=== PATIENT | male | born 1990 | race Caucasian/White ===

== ENCOUNTER 2020-09-16 07:08 | Outpatient (REF) | payer BC, SELFPAY | END 2020-09-16 07:09 | disposition home or self-care (01) | LOC: HO.LAB 07:08 | PROVIDERS: Visit Provider Internal Medicine | DX: Z20.828 Contact with and (suspected) exposure to other viral communicable diseases (principal) | CPT/HCPCS: C9803; U0003 ==

== ENCOUNTER 2024-09-28 09:09 | Emergency (ER) | payer BC, SELFPAY ==
--- NOTE | ~2024-09-28 | XR_ITS ---
EXAMINATION: XR CHEST CLINICAL INFORMATION: chest pain COMPARISON: None available. TECHNIQUE: 2 views of the chest were obtained. FINDINGS: The cardiac, hilar, and mediastinal contours are normal. The lungs are clear bilaterally. There is no pneumothorax or pleural effusion. There is no focal osseous or soft tissue abnormality. XR/XR chest 2V IMPRESSION: Normal chest. Electronically signed by: Urban Brandon MD 09/28/2024 10:43 AM [facility]
--- NOTE | 2024-09-28 09:14 | ECG_ITS ---
Test Reason : CHEST PAIN Blood Pressure : */* mmHG Vent. Rate : 56 BPM Atrial Rate : 56 BPM P-R Int : 114 ms QRS Dur : 96 ms QT Int : 402 ms P-R-T Axes : 27 61 20 degrees QTcB Int : 387 ms Sinus bradycardia Otherwise normal ECG No previous ECGs available Referred By: Generic ED Physician Electronically Signed By: eMd Song
[2024-09-28 09:47] VITALS: BP 122/83; PULSE 65; RESP 20; TEMP 36.3; O2SAT 99; BMI 23.6
[2024-09-28 10:46] LABS: MANUAL DIFF FLAG NO
[2024-09-28 10:49] LABS: Basophils Absolute Auto 0.1 X10*3/uL (0.0-0.2); Basophils Percent Auto 0.8 % (0-2); Eosinophils Absolute Auto 0.1 X10*3/uL (0.0-0.4); Eosinophils Percent Auto 1.2 % (0-4); Hematocrit 44.6 % (42.0-52.0); Hemoglobin 15.8 g/dl (14.0-18.0); Imm Gran Abs Auto 0.03 X10*3/uL (0.00-0.03); Imm Gran Pct Auto 0.5 % (0.0-0.4); Lymphocytes Absolute Auto 1.6 X10*3/uL (1.2-4.9); Lymphocytes Percent Auto 23.7 % (20-40); Mean Corpuscular HGB Conc 35.4 g/dl (31.0-36.0); Mean Corpuscular Hemoglobin 30.3 pg (27.0-33.0); Mean Corpuscular Volume 85.6 fL (80.0-98.0); Monocytes Absolute Auto 0.5 X10*3/uL (0.1-1.2); Monocytes Percent Auto 7.6 % (2-11); Neutrophils Absolute Auto 4.4 x10*3/uL (2.0-8.3); Neutrophils Percent Auto 66.2 % (45-73); Platelet Count 258 X10*3/uL (160-400); Red Blood Count 5.21 X10*6/uL (4.60-5.80); Red Cell Distribution Width 12.7 % (11.0-16.0); White Blood Count 6.6 X10*3/uL (4.8-10.8)
[2024-09-28 11:03] LABS: Alanine Aminotransferase 26 U/L (0-40); Albumin Level 4.7 g/dL (3.5-5.0); Alkaline Phosphatase 48 U/L (39-117); Anion Gap 9 (12-20); Aspartate Amino Transferase 25 U/L (5-37); Blood Urea Nitrogen 12 mg/dL (9-16); Calcium 9.8 mg/dL (8.4-10.2); Carbon Dioxide 27 mmol/L (22-29); Chloride 107 mmol/L (96-108); Creatinine Clr Calc Pharmacy 103.8; Estimated Glomerular Filt Rate > 60; Glucose Random 106 mg/dL (60-115); Potassium 4.1 mmol/L (3.3-5.1); Sodium 139 mmol/L (135-145); Total Protein 7.9 g/dL (6.5-8.0)
[2024-09-28 11:12] LABS: Troponin-I High Sensitivity < 2.7 ng/L (<3.5-35.0)
[2024-09-28 16:28] VITALS: BP 124/70; PULSE 52; RESP 12; TEMP 36.4; O2SAT 100
--- NOTE | 2024-09-28 16:31 | ED_ITS ---
HPI - Chest Pain General Chief Complaint: Chest Pain Stated Complaint: Chest pain Time Seen by Provider: 09/28/24 16:24 Source: patient Mode of arrival: ambulatory Limitations: no limitations History of Present Illness ED Provider: HPI narrative: Patient with history of chronic back pain chronic chest pain off and on for last 2 years seen at [facility] had a stress test last year which was normal multiple evaluation negative comes here as he woke up at 07:00 from dog barking in the house since then been having sharp pain left costochondral area lasted only for 1 hour no chest pain at this no diaphoresis no shortness patient denies any anxiety Related Data Allergies Allergy/AdvReac Type Severity Reaction Status Date / Time No Known Allergies Allergy Verified 09/28/24 09:48 Review of Systems 2 Review of Systems: Yes all other systems are reviewed and are negative Physical Exam 2 Vital Signs: Vital Signs: Last Vital Signs Temp 97.6 F 09/28/24 16:28 Pulse 52 09/28/24 16:28 Resp 12 09/28/24 16:28 BP 124/70 09/28/24 16:28 Pulse Ox 100 09/28/24 16:28 O2 Del Method Room Air 09/28/24 16:28 BMI result Body Mass Index 23.6 Appearance: Alert. Oriented X3. No acute distress. Eyes: PERRLA, No Nystagmus ENT: Pharynx normal. Oral Mucosa moist Neck: Normal inspection. Neck supple. CVS: Normal heart rate and rhythm. Pulses normal. Left costochondral tenderness Respiratory: No respiratory distress. Equal air entry bilateral, no wheezing/rales/rhonchi Abdomen: Soft and nontender. Bowel sounds are present, no mass palpable, no CVA tenderness Skin: Skin warm and dry. Normal skin color. Normal skin turgor. Extremities: No lower extremity edema. No calf tenderness Neuro: Oriented X 3. No motor deficit. Medical Decision Making Medical Decision Making [facility] Narrative: Patient has atypical chest pain likely musculoskeletal with heart score of 0 atypical chest pain cardiac enzymes EKG negative will discharge patient home take NSAIDs for the costochondritis Differential Diagnosis Differential Diagnoses: The differential diagnosis associated with the presentation includes Costochondritis/anxiety/musculoskeletal/ACS Lab Data [facility] Lab Attestation statement: I reviewed the patient's lab results. 09/28/24 10:44 09/28/24 10:44 Labs: Lab Results 09/28/24 Range/Units 10:44 WBC 6.6 (4.8-10.8) X10*3/uL RBC 5.21 (4.60-5.80) X10*6/uL Hgb 15.8 (14.0-18.0) g/dl Hct 44.6 (42.0-52.0) % MCV 85.6 (80.0-98.0) fL MCH 30.3 (27.0-33.0) pg MCHC 35.4 (31.0-36.0) g/dl RDW 12.7 (11.0-16.0) % Plt Count 258 (160-400) X10*3/uL MPV 9.0 L (9.4-12.4) fL Immature Gran % (Auto) 0.5 H (0.0-0.4) % Neut % (Auto) 66.2 (45-73) % Lymph % (Auto) 23.7 (20-40) % Simpson % (Auto) 7.6 (2-11) % Eos % (Auto) 1.2 (0-4) % Baso % (Auto) 0.8 (0-2) % Lymph # (Auto) 1.6 (1.2-4.9) X10*3/uL Simpson # (Auto) 0.5 (0.1-1.2) X10*3/uL Eos # (Auto) 0.1 (0.0-0.4) X10*3/uL Baso # (Auto) 0.1 (0.0-0.2) X10*3/uL Abs Immat Gran (auto) 0.03 (0.00-0.03) X10*3/uL Absolute Neuts (auto) 4.4 (2.0-8.3) x10*3/uL Absolute Nucleated RBC 0.000 (0.0-0.012) X10*3/uL Nucleated RBC % (auto) 0.0 (0.0-0.2) /100WBC Sodium 139 (135-145) mmol/L Potassium 4.1 (3.3-5.1) mmol/L Chloride 107 (96-108) mmol/L Carbon Dioxide 27 (22-29) mmol/L Anion Gap 9 L (12-20) BUN 12 (9-16) mg/dL Creatinine 1.11 (0.5-1.4) mg/dL Estim Creat Clear Calc 103.8 Estimated GFR > 60 Random Glucose 106 (60-115) mg/dL Calcium 9.8 (8.4-10.2) mg/dL Total Bilirubin 1.0 (0.0-1.0) mg/dL AST 25 (5-37) U/L ALT 26 (0-40) U/L Alkaline Phosphatase 48 (39-117) U/L Troponin I High Sens < 2.7 (<3.5-35.0) ng/L Total Protein 7.9 (6.5-8.0) g/dL Albumin 4.7 (3.5-5.0) g/dL Independent Interpretation I performed an independent interpretation of an: EKG Interpretation: Sinus bradycardia heart rate 56 beats per minute normal intervals normal axis no acute STT wave changes no acute ischemia Discharge Plan Discharge Clinical Impression: Costalchondritis Patient Disposition: Home, Self-Care Instructions: Costochondritis (ED) Additional Instructions: Take ibuprofen as advised Your pain is not from the heart, is musculoskeletal Follow up with your PCP Print Language: Armenian
[2024-09-28 16:55] VITALS: BP 124/70; PULSE 52; RESP 12; TEMP 36.4; O2SAT 100
== END 2024-09-28 16:56 | disposition home or self-care (01) ==
PROVIDERS: Emergency Provider Internal Medicine; PCP Internal Medicine
DX: M94.0 Chondrocostal junction syndrome [Tietze] (principal)
CPT/HCPCS: 36415; 71046; 80053; 84484; 85025; 93005; 99283; 99284

== ENCOUNTER → 2024-09-28 09:14 | Outpatient (BNV) | payer BC, SELFPAY | PROVIDERS: Emergency Provider Internal Medicine; PCP Internal Medicine; Visit Provider Internal Medicine Cardiovascular Disease | DX: R07.9 Chest pain, unspecified (principal) | CPT/HCPCS: 93010 ==

== ENCOUNTER → 2024-09-28 10:20 | Outpatient (BNV) | payer BC, SELFPAY | PROVIDERS: PCP Internal Medicine; Visit Provider Radiology Diagnostic Radiology | DX: R07.9 Chest pain, unspecified (principal) | CPT/HCPCS: 71046 ==

== ENCOUNTER 2024-11-02 15:30 | Outpatient (AMB) | payer BC, SELFPAY ==
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
[2024-11-02 15:58] VITALS: BP 132/70; PULSE 76; RESP 16; TEMP 36.7; O2SAT 100; BMI 25.0
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
--- OUTSIDE RECORDS SUMMARY | 2024-11-02 16:23 | XMS_ITS | Clinical Summary ---
Author Organization [facility] Address [address] [place] [id number] Phone Care Team Providers Care Pharmacy Clinical Specialist Name Role Phone Unavailable Primary Care Provider Unavailabl e Immunizations Immunization Administration Dates Next Due DTaP 07/09/1996, 3,1991,08/13,1991 H1N1 07/10/2009 Hep B, ped/adol 06/14/1997,07/09/1996,06/07/1996 Hib (PRP-T) 06/30/1992, 2,1991,06/07 Influenza, injectable, quadrivalent 06/04/2009 Influenza, injectable, quadr ivalent, preservative free 06/14/2008 MMR 06/07/1996,06/30/1992 Meningococcal Conj (Menactra) MCV4P 05/26/2007 OPV 06/07/1996, 3,1991,06/07 Td (adult) ([facility]), 5 Lf t etanus toxoid, PF, adsorbed 05/18/2002 Tdap 05/26/2007 Varicella 09/15/1995 Family History Relation Name Status Comments Father Alive healthy age: 61 Mother Alive healthy, age: 5 4 Other Alive Siblings: healt hy Social History Tobacco Use Types Packs/Day Years Used Date Smoking Tobacco: Never Assessed Sex and Gender Information Value Date Recorded Sex Assigned at Not on file Legal Sex Male 6:21 PM EDT Gender Identity Not on file Sexual Orientation Not on file Plan of Treatment Health Maintenance Due Date Last Done Comments Varicella Vaccines (2 of 2 - 2-dose childhood series) 07/05/1996 09/15/1995 DTaP,Tdap,and Td Vaccines (7 - Td or Tdap) 05/26/2017 05/26/2007, 05/18/2002, 07/09/1996, Additional history exists Influenza Vaccines (#1) 2024 06/04/2009, 06/14 COVID-19 Vaccine ( season) 2024 HIB Vaccines Completed 06/30/1992, 09/16, 1991, Additional history exists IPV Vaccines Completed 06/07/1996, 11/1992, 1991, Additional history exists MMR Vaccines Completed 06/07/1996, 06/30/1992 Hepatitis B Vaccines Completed 06/14/1997, 07/09/1996, 06/07/1996 Meningococcal Vaccine Completed 05/26/2007 HPV Vaccines Aged Out No longer eligi ble based on patient's age to complete this topic Hepatitis A Vaccines Aged Out No long er eligible based on patient's age to complete this topic Men B Vaccine Aged Out No longer elig ible based on patient's age to complete this topic Pneumococcal Vaccine Aged Out No long er eligible based on patient's age to complete this topic
--- OUTSIDE RECORDS SUMMARY | 2024-11-02 16:23 | XMS_ITS | Encounter Summary ---
Author Organization [facility] Address [address] [place] [phone] Phone Care Team Providers Care Black Powder Glazing Operator Name Role Phone Unavailable Primary Care Provider Unavailabl e Encounter Details Date Type Department Care Team (Late st Contact Info) Description 02/01/2018 [facility]counter [facility] [address] [address] Social History Tobacco Use Types Packs/Day Years Used Date Smoking Tobacco: Never Assessed Sex and Gender Information Value Date Recorded Sex Assigned at Not on file Legal Sex Male 6:21 PM EDT Gender Identity Not on file Sexual Orientation Not on file documented as of this encounter Plan of Treatment Not on file documented as of this encounter Visit Diagnoses Not on filedocumented in this encounter
--- OUTSIDE RECORDS SUMMARY | 2024-11-02 16:23 | XMS_ITS | Referral Summary ---
Author Organization [facility] Address [address] [place] [address] Care Team Providers Care Outpatient Pharmacy Manager Name Role Phone Dejuan Gamboa Primary Care [...] an opinion regarding these matters at the [facility]. A referral will be sent [...] Mass Index - - Plan of Treatment Not on file Insurance [facility] HMO/POS WORKERS COMPENSATION Care Teams Outpatient Pharmacy Manager Relationship Specialty Start Date End Date Dejuan Gamboa [address] [place] [address] - ATTN: [facility] [address] PCP - General Internal Medicine 12/24/22
== END 2024-11-02 16:30 | disposition home or self-care (01) ==
PROVIDERS: PCP Internal Medicine; Visit Provider Internal Medicine
DX: Z76.89 Persons encountering health services in other specified circumstances (principal); M94.0 Chondrocostal junction syndrome [Tietze]; E78.00 Pure hypercholesterolemia, unspecified

== ENCOUNTER → 2024-11-02 15:30 | Outpatient (BNVA) | payer BC, SELFPAY | PROVIDERS: PCP Internal Medicine; Visit Provider Internal Medicine | DX: Z76.89 Persons encountering health services in other specified circumstances (principal); M94.0 Chondrocostal junction syndrome [Tietze]; E78.00 Pure hypercholesterolemia, unspecified; J45.990 Exercise induced bronchospasm | CPT/HCPCS: 96127 ==

== ENCOUNTER 2024-11-16 09:21 | Outpatient (AMB) | payer BC, SELFPAY ==
--- NOTE | 2024-11-16 09:25 | A.OFFVIS_ITS ---
Vital Signs 11/16/24 09:31 Height 6 ft Weight 183 lb BMI 24.8 BP 124/77 Blood Pressure Location Rt brachial Position Sitting Respiration 16 Pulse 68 Pulse Source Pulse Oximeter Temp 98.0 F Temp Source Oral Pulse Oximetry (%) 100 Oxygen Delivery Method Room Air Intake Visit Reasons: Throat infection Intake Note: patient here c/o sore throat for the past 2 months he was seen by ENT they gave him antibiotics and steroids hes all done with meds and still having pain. Senior Telecommunications Engineer Required: No Allergies ic cefdinir Allergy (Severe, Uncoded 11/02/24 15:51) Confusion Do you need a note to return to daycare/school/sports/work: Yes HPI Comments Details: 34-year-old male presents with complaints of a sore throat. He reports sore throat related to a swollen lymph node for the past 2 months. He was seen by Dr. Albarran, ENT and was given Augmentin x7 days and prednisone which he completed. His signs and symptoms subsided. However, he started experiencing sore throat 3 days ago and his noticed yellow patches to the back of his throat. He notes pain with swollowing. He denies swelling throat swelling. He denies constitutional symptoms. He has been taking ibuprofen as needed. He has a follow up appointment with ENT on 11/30/2024. 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 Current occupational exposures/hazards: No Cognitive needs: No Hearing needs: No Vision needs: No Review of Systems Const Details: Const Denies chills, Denies fatigue, Denies fever(s), Denies headache(s) and Denies weakness ENT Reports as per HPI Card Denies chest pain, Denies lightheadedness, Denies dyspnea and Denies other (Palpitations) Resp Denies cough, Denies dyspnea, Denies wheezing and Denies other ( shortness of breath) GI Denies abdominal pain, Denies melena, Denies hematochezia, Denies change in bowel habits, Denies dyspepsia and Denies nausea Denies hematuria and Denies dysuria Musc Denies abnormal gait, Denies myalgias, Denies arthralgias, Denies numbness and Denies tingling Skin/Breast Denies rash, Denies unusual bruising and Denies wounds Neuro Denies abnormal gait, Denies dizziness, Denies headache(s), Denies memory loss, Denies numbness, Denies Sensory deficit (Neuro), Denies tingling and Denies weakness Psych Denies anxiety, Denies depression, Denies memory loss Endo Denies cold intolerance, Denies fatigue, Denies heat intolerance, Denies polydipsia and Denies polyuria Aller/Immun Denies wheezing Physical Exam Vital Signs: Last Vital Signs Temp 98.0 F 11/16/24 09:31 Pulse 68 11/16/24 09:31 Resp 16 11/16/24 09:31 BP 124/77 11/16/24 09:31 Pulse Ox 100 11/16/24 09:31 Oxygen Delivery Method Room Air 11/16/24 09:31 BMI result Body Mass Index 24.8 Const Other: General: no acute distress and well developed Nutritional Appearance: well nourished Orientation/consciousness: patient oriented x3 HENMT Head is normocephalic Bilateral ear canal and TM are normal Nasal turbinates are pink and moist Oropharynx with significant erythema and yellow patches. No edema or exudates Sinuses are nontender with palpation No auricular or cervical lymphadenopathy Eyes General: appearance normal, both eyes and all related structures Pupils: Equal, round and reactive pupils present EOM: EOMs intact bilaterally Resp Effort & Inspection: normal respiratory effort Auscultation: clear to auscultation bilaterally Cardio Rate: regular rate Rhythm: regular rhythm Heart sounds: S1 normal heart sound present, S2 normal heart sound present, no gallops, no murmurs and no rubs GI Palpation (GI): No Abdominal aortic bruit present, Soft to palpation, nontender, No hepatosplenomegaly present and No Rebound tenderness present Auscultation: normal bowel sounds General: Yes no CVA tenderness Back/Spine/Pelvis Back: no CVA tenderness Cervical Spine: cervical ROM normal and No Cervical spine tenderness Thoracic/Lumbar Spine: thoraco-lumbar ROM normal, No pain with thoraco-lumbar ROM, No thoracic spinal tenderness and No lumbar spinal tenderness Extrem General: Yes normal to inspection, No edema and No calf tenderness Skin General: warm and dry. Normal skin color. Normal skin turgor Neuro General: patient oriented x3, gait normal and no focal neuro deficit Cranial nerves: Yes Equal, round and reactive pupils present Cognition (Neuro): normal cognition Gait exam (Neuro): Normal gait present Sensory Exam: No Sensory deficit (Neuro) Psych Appearance: grossly normal Affect: normal affect Attitude: cooperative Thought process: Normal thought process present Assessment & Plan Assessment & Plan (1) Strep pharyngitis: Code(s): J02.0 - Streptococcal pharyngitis Category: Medical Plan: Oropharynx with significant erythema and yellow patches. No edema or exudates. Augmentin 875-125 mg twice daily ordered; advised to take as prescribed. May take Tylenol ibuprofen for pain or discomfort. May gargle with lukewarm salt water as needed. Instructed ways to limit spread, including avoid kissing or sharing utensils. Follow-up with ENT as planned. Return with worsening or new symptoms. Verbalized understanding and agreed with the plan. Medications: New amoxicillin-pot clavulanate 500-125 mg (Augmentin) 1 tab PO Q12H 7 days 14 tabs 0RF Coding Level of Care Code Est Pt Level 3 (09024) Diagnoses Strep pharyngitis J02.0
[2024-11-16 09:31] VITALS: BP 124/77; PULSE 68; RESP 16; TEMP 36.7; O2SAT 100; BMI 24.8
--- OUTSIDE RECORDS SUMMARY | 2024-11-16 10:22 | XMS_ITS | Referral Summary ---
Author Organization [facility] Address [address] [place] [address] Care Team Providers Care Preformer Impregnated Fabrics Name Role Phone Dejuan Gamboa Primary Care [...] an opinion regarding these matters at the [facility]. A referral will be [...] Plan of Treatment Not on file Insurance [facility] HMO/POS WORKERS COMPENSATION Care Teams Preformer Impregnated Fabrics Relationship Specialty Start Date End Date Dejuan Gamboa [address] [place] [address] - ATTN: [facility] [place] [address] PCP - General Internal Medicine 12/24/22
--- OUTSIDE RECORDS SUMMARY | 2024-11-16 10:22 | XMS_ITS | Clinical Summary ---
Author Organization [facility] Address [address] [place] [address] Care Team Providers Care Tender Coordinator Name Role Phone Bee Dejuan Rick Primary Care Provider Unavail able Allergies Active [...] an opinion regarding these matters at the [facility]. A referral will be [...] 06/07/1996 Insurance HMO/POS WORKERS COMPENSATION Care Teams Tender Coordinator Relationship Specialty Start Date End Date Dejuan Gamboa [address] [facility] - ATTN: [facility] [place] [address] PCP - General Internal Medicine 12/24/22
--- OUTSIDE RECORDS SUMMARY | 2024-11-16 10:22 | XMS_ITS | Clinical Summary ---
Author Organization [facility] Address [address] [place] [phone] Phone Care Team Providers Care Recreation Assistant Name Role Phone Unavailable Primary Care Provider Unavailabl e Immunizations Immunization Administration Dates Next Due DTaP 07/09/1996, 3,1991,08/13,1991 H1N1 07/10/2009 Hep B, ped/adol 06/14/1997,07/09/1996,06/07/1996 Hib (PRP-T) 06/30/1992, 2,1991,06/07 Influenza, injectable, quadrivalent 06/04/2009 Influenza, injectable, quadr ivalent, preservative free 06/14/2008 MMR 06/07/1996,06/30/1992 Meningococcal Conj (Menactra) MCV4P 05/26/2007 OPV 06/07/1996, 3,1991,06/07 [facility] 5 Lf t etanus toxoid, PF, adsorbed [...]
--- OUTSIDE RECORDS SUMMARY | 2024-11-16 10:22 | XMS_ITS | Encounter Summary ---
Author Organization [facility] Address [address] [place] [address] Phone Care Team Providers Care Flexo Operator Name Role Phone Unavailable Primary Care Provider Unavailabl e Encounter Details Date Type Department Care Team (Late st Contact Info) Description 02/01/2018 Conversion Encounter [facility] [address] [address] Social History Tobacco Use Types Packs/Day Years [...]
== END 2024-11-16 10:44 | disposition home or self-care (01) ==
PROVIDERS: PCP Internal Medicine; Visit Provider Nurse Practitioner Family
DX: J02.0 Streptococcal pharyngitis (principal)

== ENCOUNTER 2024-12-28 11:51 | Outpatient (AMB) | payer BC, SELFPAY ==
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
[2024-12-28 12:04] VITALS: BP 128/64; PULSE 90; RESP 14; O2SAT 98
--- OUTSIDE RECORDS SUMMARY | 2024-12-28 14:39 | XMS_ITS | Referral Summary ---
Author Organization [facility] Address [address] [place] [address] Care Team Providers Care Computer Technical Support Specialist Name Role Phone Dejuan Gamboa Primary Care [...] an opinion regarding these matters at the [facility]. A referral will be sent [...] Plan of Treatment Not on file Insurance [facility] HMO/POS WORKERS COMPENSATION Care Teams Computer Technical Support Specialist Relationship Specialty Start Date End Date Dejuan Gamboa [address] [place] [address] - ATTN: [facility] [place] [address] PCP - General Internal Medicine 12/24/22
--- OUTSIDE RECORDS SUMMARY | 2024-12-28 14:39 | XMS_ITS | Encounter Summary ---
Author Organization [facility] Address [address] [place] [address] Phone Care Team Providers Care Tow Feeder Name Role Phone Unavailable Primary Care Provider Unavailabl e Encounter Details Date Type Department Care Team (Late st Contact Info) Description 02/01/2018 Conversion Encounter [facility] [address] [address] Social History Tobacco Use Types Packs/Day Years [...]
--- OUTSIDE RECORDS SUMMARY | 2024-12-28 14:39 | XMS_ITS | Clinical Summary ---
Author Organization [facility] Address [address] [place] [address] Care Team Providers Care Machine Skiver Name Role Phone Bee Dejuan Rick Primary [...] opinion regarding these matters at the [facility]. A referral will be [...] - 2023-2 5 season) 2024 09/05/2021, 10/25/2020 Alcohol/Substance Use Screening 09/15/2024 Depression Screening and Follow-Up 09/15/2024 Social Drivers of Health Shayy ual Screening 09/15/2024 Influenza Vaccine (Season Ended) 2025 05/22/2023, 09/02/2022, 09/02/2022, Additional history exists RSV Vaccine (60+ years old a nd patients) (1 - 1-dose 75+ series) 2066 Hepatitis B Vaccines Completed 06/14/1997, 07/09/1996, 06/07/1996 Insurance HMO/POS WORKERS COMPENSATION Care Teams Machine Skiver Relationship Specialty Start Date End Date Dejuan Gamboa [address] [facility] - ATTN: [facility] [place] [address] PCP - General Internal Medicine 12/24/22
--- OUTSIDE RECORDS SUMMARY | 2024-12-28 14:39 | XMS_ITS | Clinical Summary ---
Author Organization [facility] Address [address] [place] [address] Phone Care Team Providers Care Sandblast Or Shotblast Equipment Tender Name Role Phone Unavailable Primary Care Provider Unavailabl e Immunizations Immunization Administration Dates Next Due DTaP 07/09/1996, 3,1991,08/13,1991 H1N1 07/10/2009 Hep B, ped/adol 06/14/1997,07/09/1996,06/07/1996 Hib (PRP-T) 06/30/1992, 2,1991,06/07 Influenza, injectable, quadrivalent 06/04/2009 Influenza, injectable, quadr ivalent, preservative free 06/14/2008 MMR 06/07/1996,06/30/1992 Meningococcal Conj (Menactra) MCV4P 05/26/2007 OPV 06/07/1996, 3,1991,06/07 [facility] 5 Lf t etanus toxoid, PF, [...]
== END 2024-12-28 12:29 | disposition home or self-care (01) ==
LOC: HO.HMCFM 11:51
PROVIDERS: PCP Internal Medicine; Visit Provider Internal Medicine
DX: R00.2 Palpitations (principal); R07.9 Chest pain, unspecified; Z87.828 Personal history of other (healed) physical injury and trauma

== ENCOUNTER → 2024-12-28 11:51 | Outpatient (BNVA) | payer BC, SELFPAY | PROVIDERS: PCP Internal Medicine; Visit Provider Internal Medicine ==

== ENCOUNTER 2024-12-28 12:39 | Outpatient (REF) | payer BC, SELFPAY ==
[2024-12-28 14:44] LABS: MANUAL DIFF FLAG NO
[2024-12-28 14:49] LABS: Basophils Percent Auto 0.4 % (0-2); Eosinophils Percent Auto 0.4 % (0-4); Hemoglobin 14.8 g/dl (14.0-18.0); Imm Gran Abs Auto 0.16 X10*3/uL (0.00-0.03); Imm Gran Pct Auto 2.1 % (0.0-0.4); Lymphocytes Percent Auto 13.1 % (20-40); Mean Corpuscular HGB Conc 35.2 g/dl (31.0-36.0); Mean Corpuscular Hemoglobin 30.9 pg (27.0-33.0); Mean Corpuscular Volume 87.7 fL (80.0-98.0); Mean Platelet Volume 9.4 fL (9.4-12.4); Monocytes Absolute Auto 0.6 X10*3/uL (0.1-1.2); Monocytes Percent Auto 7.2 % (2-11); Neutrophils Absolute Auto 5.9 x10*3/uL (2.0-8.3); Neutrophils Percent Auto 76.8 % (45-73); Platelet Count 253 X10*3/uL (160-400); Red Blood Count 4.79 X10*6/uL (4.60-5.80); White Blood Count 7.6 X10*3/uL (4.8-10.8)
[2024-12-28 15:14] LABS: Rheumatoid Factor < 13.0 IU/mL (<15.0)
--- OUTSIDE RECORDS SUMMARY | 2024-12-28 15:24 | XMS_ITS | Clinical Summary ---
Author Organization [facility] Address [address] [place] [address] Care Team Providers Care Beef Cattle Farm Worker Name Role Phone Bee Dejuan Rick Primary [...] an opinion regarding these matters at the [facility]. A referral will be sent [...] 06/07/1996 Insurance HMO/POS WORKERS COMPENSATION Care Teams Beef Cattle Farm Worker Relationship Specialty Start Date End Date Dejuan Gamboa [address] [facility] - ATTN: [facility] [place] [address] PCP - General Internal Medicine 12/24/22
--- OUTSIDE RECORDS SUMMARY | 2024-12-28 15:24 | XMS_ITS | Encounter Summary ---
Author Organization [facility] Address [address] [place] [address] Phone Care Team Providers Care Learning And Development Administrator Name Role Phone Unavailable Primary Care Provider Unavailabl e Encounter Details Date Type Department Care Team (Late st Contact Info) Description 02/01/2018 Conversion Encounter [facility] [address] [address] Social History Tobacco Use Types Packs/Day Years [...]
--- OUTSIDE RECORDS SUMMARY | 2024-12-28 15:24 | XMS_ITS | Clinical Summary ---
Author Organization [facility] Address [address] [place] [address] Phone Care Team Providers Care Logistics And Planning Manager Name Role Phone Unavailable Primary Care Provider Unavailabl e Immunizations Immunization Administration Dates Next Due DTaP 07/09/1996, 3,1991,08/13,1991 H1N1 07/10/2009 Hep B, ped/adol 06/14/1997,07/09/1996,06/07/1996 Hib (PRP-T) 06/30/1992, 2,1991,06/07 Influenza, injectable, quadrivalent 06/04/2009 Influenza, injectable, quadr ivalent, preservative free 06/14/2008 MMR 06/07/1996,06/30/1992 Meningococcal Conj (Menactra) MCV4P 05/26/2007 OPV 06/07/1996, 3,1991,06/07 [facility] 5 Lf t etanus toxoid, PF, [...]
--- OUTSIDE RECORDS SUMMARY | 2024-12-28 15:24 | XMS_ITS | Referral Summary ---
Author Organization [facility] Address [address] [place] [address] Care Team Providers Care Refining Supervisor Name Role Phone Dejuan Gamboa Primary Care [...] opinion regarding these matters at the [facility]. A referral will be [...] Plan of Treatment Not on file Insurance [facility] HMO/POS WORKERS COMPENSATION Care Teams Refining Supervisor Relationship Specialty Start Date End Date Dejuan Gamboa [address] [place] [address] - ATTN: [facility] [place] [address] PCP - General Internal Medicine 12/24/22
[2024-12-28 15:41] LABS: Erythrocyte Sedimentation Rate 2 MM/HR (0-15)
[2024-12-28 17:28] LABS: Alanine Aminotransferase 23 U/L (0-40); Albumin Level 4.4 g/dL (3.5-5.0); Alkaline Phosphatase 45 U/L (39-117); Anion Gap 12 (12-20); Aspartate Amino Transferase 21 U/L (5-37); Bilirubin Total 0.9 mg/dL (0.0-1.0); Blood Urea Nitrogen 18 mg/dL (9-16); Calcium 9.8 mg/dL (8.4-10.2); Carbon Dioxide 26 mmol/L (22-29); Chloride 106 mmol/L (96-108); Cholesterol 208 mg/dL (<200); Estimated Glomerular Filt Rate > 60; Glucose Random 119 mg/dL (60-115); HDL Cholesterol 67 mg/dL (>40); LDL Cholesterol Calculated 116 mg/dL (<100); Potassium 4.2 mmol/L (3.3-5.1); Sodium 140 mmol/L (135-145); Total Protein 7.4 g/dL (6.5-8.0); Triglycerides 127 mg/dL (<150)
[2024-12-29 04:08] LABS: CRP High Sensitivity <0.2 mg/L
[2024-12-29 04:58] LABS: Lyme Abs Screen <0.90 index
== END 2024-12-28 12:40 | disposition home or self-care (01) ==
LOC: HO.WFDLDS 12:39
PROVIDERS: Visit Provider Internal Medicine
DX: Z76.89 Persons encountering health services in other specified circumstances (principal); J45.909 Unspecified asthma, uncomplicated; E78.5 Hyperlipidemia, unspecified; R07.9 Chest pain, unspecified; M94.0 Chondrocostal junction syndrome [Tietze]
CPT/HCPCS: 36415; 80053; 80061; 85025; 85652; 86141; 86431; 86617; 86618

== ENCOUNTER 2025-01-10 10:29 | Outpatient (AMB) | payer BC, SELFPAY ==
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
[2025-01-10 10:41] VITALS: BP 126/72; PULSE 74; RESP 14; O2SAT 100; BMI 25.6
--- OUTSIDE RECORDS SUMMARY | 2025-01-10 12:19 | XMS_ITS | Clinical Summary ---
Author Organization [facility] Address [address] [place] [id number] Phone Care Team Providers Care Heel Compressor Name Role Phone Unavailable Primary Care Provider Unavailabl e Immunizations Immunization Administration Dates Next Due DTaP 07/09/1996, 3,1991,08/13,1991 H1N1 07/10/2009 Hep B, ped/adol 06/14/1997,07/09/1996,06/07/1996 Hib (PRP-T) 06/30/1992, 2,1991,06/07 Influenza, injectable, quadrivalent 06/04/2009 Influenza, injectable, quadr ivalent, preservative free 06/14/2008 MMR 06/07/1996,06/30/1992 Meningococcal Conj (Menactra) MCV4P 05/26/2007 OPV 06/07/1996, 3,1991,06/07 [facility] (adult[facility] 5 Lf t etanus toxoid, PF, [...]
--- OUTSIDE RECORDS SUMMARY | 2025-01-10 12:19 | XMS_ITS | Encounter Summary ---
Author Organization [facility] Address [address] [place] [phone] Phone Care Team Providers Care Ichthyologist Name Role Phone Unavailable Primary Care Provider Unavailabl e Encounter Details Date Type Department Care Team (Late st Contact Info) Description 02/01/2018 [facility]counter [facility] [address] [address] Social History Tobacco Use Types Packs/Day Years [...]
--- OUTSIDE RECORDS SUMMARY | 2025-01-10 12:19 | XMS_ITS | Clinical Summary ---
Author Organization [facility] Address [address] [place] [address] Care Team Providers Care Set Up Mold Technician Name Role Phone Bee Dejuan Rick Primary [...] opinion regarding these matters at the [facility]. A referral will be [...] 06/07/1996 Insurance HMO/POS WORKERS COMPENSATION Care Teams Set Up Mold Technician Relationship Specialty Start Date End Date Dejuan Gamboa [address] [facility] - ATTN: TEJINDER [facility] [place] [address] PCP - General Internal Medicine 12/24/22
--- OUTSIDE RECORDS SUMMARY | 2025-01-10 12:19 | XMS_ITS | Referral Summary ---
Author Organization [facility] Address [address] [place] [address] Care Team Providers Care Bottom Saw Operator Name Role Phone Dejuan Gamboa Primary Care [...] an opinion regarding these matters at the [facility]. A referral will be [...] Plan of Treatment Not on file Insurance [facility] HMO/POS WORKERS COMPENSATION Care Teams Bottom Saw Operator Relationship Specialty Start Date End Date Dejuan Gamboa [address] [place] [address] - ATTN: [facility] [place] [address] PCP - General Internal Medicine 12/24/22
== END 2025-01-10 13:57 | disposition home or self-care (01) ==
LOC: HO.HMCFM 10:30
PROVIDERS: PCP Internal Medicine; Visit Provider Internal Medicine
DX: F41.0 Panic disorder [episodic paroxysmal anxiety] (principal); R07.9 Chest pain, unspecified

== ENCOUNTER → 2025-01-10 10:29 | Outpatient (BNVA) | payer BC, SELFPAY | PROVIDERS: PCP Internal Medicine; Visit Provider Internal Medicine | DX: F41.0 Panic disorder [episodic paroxysmal anxiety] (principal); R07.9 Chest pain, unspecified | CPT/HCPCS: 96127 ==

== ENCOUNTER → 2025-02-04 10:55 | Outpatient (REF) | payer BC, SELFPAY ==
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
--- OUTSIDE RECORDS SUMMARY | 2025-02-04 11:00 | XMS_ITS | Referral Summary ---
Author Organization [facility] Address [address] [place] [address] Care Team Providers Care Chief Operator Hydroformer Name Role Phone Dejuan Gamboa Primary Care [...] an opinion regarding these matters at the [facility]. A referral will be [...] of Treatment Not on file Insurance [facility] HMO/POS WORKERS COMPENSATION Care Teams Chief Operator Hydroformer Relationship Specialty Start Date End Date Dejuan Gamboa [address] [place] [address] - ATTN: [facility] [place] [address] PCP - General Internal Medicine 12/24/22
== END ==
LOC: HO.CARD 10:55
PROVIDERS: PCP Internal Medicine; Visit Provider Internal Medicine
DX: R07.9 Chest pain, unspecified (principal); R00.2 Palpitations; M94.0 Chondrocostal junction syndrome [Tietze]; Z87.828 Personal history of other (healed) physical injury and trauma
CPT/HCPCS: 93225; 93306

== ENCOUNTER → 2025-02-04 10:57 | Outpatient (BNV) | payer BC, SELFPAY | PROVIDERS: PCP Internal Medicine; Visit Provider Internal Medicine Cardiovascular Disease | DX: R07.9 Chest pain, unspecified (principal) | CPT/HCPCS: 93306 ==

== ENCOUNTER 2025-03-11 16:31 | Outpatient (REF) | payer BC, SELFPAY ==
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
== END 2025-03-11 16:32 | disposition home or self-care (01) ==
LOC: HO.CT 16:31
PROVIDERS: PCP Internal Medicine; Visit Provider Internal Medicine
DX: R07.9 Chest pain, unspecified (principal); Z87.828 Personal history of other (healed) physical injury and trauma
CPT/HCPCS: 71250

== ENCOUNTER → 2025-03-11 16:41 | Outpatient (BNV) | payer BC, SELFPAY | PROVIDERS: PCP Internal Medicine; Visit Provider Radiology Diagnostic Radiology | DX: Z87.828 Personal history of other (healed) physical injury and trauma (principal) | CPT/HCPCS: 71250 ==

== ENCOUNTER 2025-03-15 11:12 | Outpatient (AMB) | payer BC, SELFPAY ==
[2025-03-15 11:17] VITALS: BP 122/78; PULSE 66; RESP 14; TEMP 36.9; O2SAT 99; BMI 25.5
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
--- OUTSIDE RECORDS SUMMARY | 2025-03-15 12:28 | XMS_ITS | Encounter Summary ---
Author Organization [facility] Address [address] [place] [phone] Phone Care Team Providers Care Packaging Associate Name Role Phone Unavailable Primary Care Provider Unavailabl e Encounter Details Date Type Department Care Team (Late st Contact Info) Description 02/01/2018 Conversion Encounter [facility] [address] [address] Social History Tobacco Use Types Packs/Day Years [...]
--- OUTSIDE RECORDS SUMMARY | 2025-03-15 12:28 | XMS_ITS | Referral Summary ---
Author Organization [facility] Address [address] [place] [address] Care Team Providers Care Maintainer Central Office Name Role Phone Dejuan Gamboa Primary Care [...] Plan of Treatment Not on file Insurance [facility] HMO/POS WORKERS COMPENSATION Care Teams Maintainer Central Office Relationship Specialty Start Date End Date Dejuan Gamboa [address] [place] [address] - ATTN: [facility] [place] [address] PCP - General Internal Medicine 12/24/22
== END 2025-03-15 11:41 | disposition home or self-care (01) ==
LOC: HO.HMCFM 11:13
PROVIDERS: PCP Internal Medicine; Visit Provider Internal Medicine
DX: R07.9 Chest pain, unspecified (principal); F41.9 Anxiety disorder, unspecified

== ENCOUNTER 2025-08-02 15:55 | Outpatient (AMB) | payer BC, SELFPAY ==
[2025-08-02 15:58] VITALS: BP 108/84; PULSE 70; RESP 14; TEMP 36.7; O2SAT 99; BMI 26.8
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
--- OUTSIDE RECORDS SUMMARY | 2025-08-03 13:14 | XMS_ITS | Encounter Summary ---
Author Organization [facility] Address [address] [place] [address] [place] [phone] Phone Care Team Providers Care Esthetician Spa Name Role Phone Dejuan Gamboa MD Primary Care Provider + Encounter Details Date Type Department Care Team (Late st Contact Info) Description 09/20/2022 Procedure Pass [facility], Ct Scan - [address] [address] Social History Tobacco Use Types Packs/Day Years Used Date Smoking Tobacco: Never Smokeless Tobacco: Never Alcohol Use Standard Drinks/Week Comments Not Currently 0 (1 standard drink = 0.6 oz pur e alcohol) Sex and Gender Information Value Date Recorded Sex Assigned at Male 12/18/2019 5:19 PM EDT Legal Sex Male 5:12 PM EDT Gender Identity Male 12/18/2019 5:19 PM EDT Sexual Orientation Choose not to disclose 2023 2:04 AM EDT documented as of this encounter Functional Status * Calculated C-SSRS Risk Score (Lifetime/Recent) Answer Date of Assessment Author No Risk Indicated 09/20/2022 12:51 PM Cherise Bliss RN * [place] Suicide Severity Rating Scale (Screener/Recent Self-Report) Question Answer Date of Assessment Author 1. Wish to be (Past 1 Month) No 023 12:51 PM Cherise Garcia RN 2. Non-Specific Active Suici quinton Thoughts (Past 1 Month) No 09/20/2022 12:51 PM EST Bettie, Sa rah, RN 6. Suicidal Behavior (Lifetime) No 3 12:51 PM EST Cherise Alexandre RN documented as of this encounter Plan of Treatment Not on file documented as of this encounter Visit Diagnoses Not on filedocumented in this encounter Additional Health Concerns Infection Onset Date Last Indicated Resolved Time CoV-Risk 09/04/2023 09/04/2023 09/15/2023 1:24 AM EST documented as of this encounter Care Teams Esthetician Spa Relationship Specialty Start Date End Date Dejuan Gamboa MD [address] [place] [id number] PCP - General Internal Medicine 12/19/19 documented as of this encounter Additional Source Comments The information contained in this document represents components of the legal health record. It is not the complete legal health record.[facility]
--- OUTSIDE RECORDS SUMMARY | 2025-08-03 13:15 | XMS_ITS | Encounter Summary ---
Author Organization [facility] Address [address] [place] [phone] Phone Care Team Providers Care Counter Supervisor Name Role Phone Unavailable Primary Care Provider Unavailabl e Encounter Details Date Type Department Care Team (Late st Contact Info) Description 02/01/2018 Conversion Encounter [facility] [address] [address] Social History Tobacco Use Types Packs/Day Years [...]
--- OUTSIDE RECORDS SUMMARY | 2025-08-03 13:15 | XMS_ITS | Clinical Summary ---
Author Organization [facility] Address [address] [place] [phone] Phone Care Team Providers Care Receiving Operator Name Role Phone Unavailable Primary Care Provider Unavailabl e Immunizations Immunization Administration Dates Next Due DTaP 07/09/1996, 3,1991,08/13,1991 H1N1 07/10/2009 Hep B, ped/adol 06/14/1997,07/09/1996,06/07/1996 Hib (PRP-T) 06/30/1992, 2,1991,06/07 Influenza, injectable, quadrivalent 06/04/2009 Influenza, injectable, quadr ivalent, preservative free 06/14/2008 MMR 06/07/1996,06/30/1992 Meningococcal Conj (Menactra) MCV4P 05/26/2007 OPV 06/07/1996, 3,1991,06/07 [facility]adult[facility] 5 Lf t etanus toxoid, PF, adsorbed [...] 05/26/2017 05/26/2007, 05/18/2002, 07/09/1996, Additional history exists HPV Vaccines (1 - 3-dose SCDM series) 2018 Influenza Vaccines (#1) 2025 06/04/2009, 06/14 COVID-19 Vaccine ( season) 2025 HIB Vaccines Completed 06/30/1992, 09/16, 1991, Additional history exists IPV Vaccines Completed 06/07/1996, 0 11/1992, 1991, Additional history exists MMR Vaccines Completed 06/07/1996, 06/30/1992 Hepatitis B Vaccines Completed 06/14/1997, 07/09/1996, 06/07/1996 Meningococcal Vaccine Completed 05/26/2007 Hepatitis A Vaccines Aged Out No long er eligible based on patient's age to complete this topic Men B Vaccine Aged Out No longer elig ible based on patient's age to complete this topic Pneumococcal Vaccine Aged Out No long er eligible based on patient's age to complete this topic
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
--- OUTSIDE RECORDS SUMMARY | 2025-08-03 13:15 | XMS_ITS | Clinical Summary ---
Author Organization [facility] Address [address] [place] [address] Care Team Providers Care Kitchen Clerk Name Role Phone Bee Dejuan Rick Primary [...] an opinion regarding these matters at the [facility]. A referral will be [...] 05/26/2017 05/26/2007, 05/18/2002, 07/09/1996, Additional history exists Alcohol/Substance Use Screening 09/15/2024 Depression Screening and Follow-Up 09/15/2024 Social Drivers of Health Shayy ual Screening 09/15/2024 Influenza Vaccine (#1) 2025 , 09/02/2022, 09/02/2022, Additional history exists COVID-19 Vaccine (3 - 2024-2 6 season) 2025 09/05/2021, 10/25/2020 Hepatitis B Vaccines Completed 06/14/1997, 07/09/1996, 06/07/1996 Insurance [facility] [employer] Care Teams Kitchen Clerk Relationship Specialty Start Date End Date Dejuan Gamboa [address] [place] [address] - ATTN: TEJINDER [facility] [place] [address] PCP - General Internal Medicine 12/24/22
== END 2025-08-02 16:26 | disposition home or self-care (01) ==
LOC: HO.HMCFM 15:55
PROVIDERS: PCP Internal Medicine; Visit Provider Internal Medicine
DX: Z00.00 Encounter for general adult medical examination without abnormal findings (principal); J45.909 Unspecified asthma, uncomplicated; F41.9 Anxiety disorder, unspecified

== ENCOUNTER → 2025-08-02 15:55 | Outpatient (BNVA) | payer BC, SELFPAY | PROVIDERS: PCP Internal Medicine; Visit Provider Internal Medicine | DX: Z00.00 Encounter for general adult medical examination without abnormal findings (principal); Z23 Encounter for immunization; J45.909 Unspecified asthma, uncomplicated; F41.9 Anxiety disorder, unspecified | CPT/HCPCS: 90471; 90656 ==